=== PATIENT | male | born 1995 | race Caucasian/White ===

== ENCOUNTER → 2017-01-19 15:17 | Emergency (ER) | payer SELFPAY ==
[~2017-01-19 15:17] MED LIST: Ibuprofen TAB* 600 MG PO ONE
[2017-01-19 16:03] VITALS: BP 144/95
--- NOTE | 2017-01-19 17:43 | ED ---
HPI Chest Pain - HPI Summary HPI Summary: 21 male presents with complaints of chest pain on the left side that also radiates into his shoulder that he describes as squeezing. Patient states he had this pain a few days ago that went away however returned upon waking this morning. States the pain worsens during inspiration. States the pain is constant and and severity is in between a 5-7/10. Has never had pain like this before. Denies SOB and difficulty breathing. Denies diaphoresis, nausea, vomiting, recent illness, cold symptoms, headache and fever/chills. Admits to having some acid reflux ~ 1 week ago that improved after taking pepto bismol. Denies diarrhea, constipation and abdominal pain. Does not have any medical problems. Has not taken any medications. Denies recent trauma, injury, or strenuous physical activity. Has not worked out at the gym. No other complaints at this time. States the pain has been worsening throughout the day. No recent travel, denies anxiety. Has not eaten spicy or acidic foods. Denies numbness/ tingling. - History of Current Complaint Chief Complaint: EDChestWallPain Time Seen by Provider: 01/19/17 16:45 Hx Obtained From: Patient Onset/Duration: Started Hours Ago - this am upon waking Timing: Constant Initial Severity: Mild Current Severity: Moderate Pain Intensity: 6 Pain Scale Used: 0-10 Numeric Chest Pain Location: Mid Sternal, Upper Sternal, Left Lateral Chest Pain Radiates To:: Shoulder Character: Pressure/Squeezing, Sharp/Stabbing Aggravating Factor(s): Deep Breaths Alleviating Factor(s): Spontaneous Resolution - last episode, however has not resolved this current episode Associated Signs and Symptoms: Positive: Chest Pain. Negative: Recent Stress, Headaches, Numbness, Tingling, Weakness, Shortness of Breath, Swelling, Fever, Chills, Lightheadedness, Diaphoresis, Nausea, Cough, Back Pain, Vomiting, Nasal Congestion, URI - Risk Factors Pulmonary Embolism Risk Factors: Smoking TAD Risk Factors: Negative - Allergy/Home Medications Allergies/Adverse Reactions: Allergies Allergy/AdvReac Type Severity Reaction Status Date / Time No Known Allergies Allergy Verified 06/07/15 21:29 PMH/Surg Hx/FS Hx/Imm Hx Endocrine/Hematology History: Denies: Hx Diabetes Cardiovascular History: Denies: Hx Hypertension Respiratory History: Denies: Hx Asthma - Surgical History Surgery Procedure, Year, and Place: EAR TUBES - Immunization History Immunizations Up to Date: Yes Infectious Disease History: Denies: Traveled Outside the [place] in Last 30 Days - Family History Known Family History: Positive: None - Social History Alcohol Use: None Substance Use Type: Reports: None Smoking Status (MU): Current Every Day Smoker Type: Cigarettes Amount Used/How Often: 1/3 PPD Review of Systems Constitutional: Negative Eyes: Negative ENT: Negative Positive: Chest Pain Respiratory: Negative Gastrointestinal: Negative Skin: Negative Neurological: Negative All Other Systems Reviewed And Are Negative: Yes Physical Exam Triage Information Reviewed: Yes Vital Signs On Initial Exam: Initial Vitals Temp Pulse Resp BP Pulse Ox 98.0 F 82 20 144/95 97 01/19/17 16:01 01/19/17 16:01 01/19/17 16:01 01/19/17 16:01 01/19/17 16:01 Vital Signs Reviewed: Yes Appearance: Positive: Well-Appearing, No Pain Distress, Well-Nourished Skin: Positive: Warm, Skin Color Reflects Adequate Perfusion, Dry. Negative: Numb, Cyanosis @, Erythema @ Head/Face: Positive: Normal Head/Face Inspection Eyes: Positive: Normal, Conjunctiva Clear ENT: Positive: Normal ENT inspection, Hearing grossly normal, Pharynx normal, TMs normal Neck: Positive: Supple, Nontender, No Lymphadenopathy Respiratory/Lung Sounds: Positive: Clear to Auscultation, Breath Sounds Present. Negative: Rales, Rhonchi, Wheezes Cardiovascular: Positive: Normal - chest pain is nonreproducible on palpation, RRR, Pulses are Symmetrical in both Upper and Lower Extremities. Negative: Murmur, Rub Abdomen Description: Positive: Nontender, No Organomegaly, Soft Bowel Sounds: Positive: Present Musculoskeletal: Positive: Normal, Strength/ROM Intact Neurological: Positive: Normal, Sensory/Motor Intact, Alert, Oriented to Person Place, Time Psychiatric: Positive: Affect/Mood Appropriate AVPU Assessment: Alert Diagnostics - Vital Signs Vital Signs Temp Pulse Resp BP Pulse Ox 01/19/17 16:01 98.0 F 82 20 144/95 97 - Laboratory Result Diagrams: 01/19/17 17:55 01/19/17 17:55 Lab Statement: Any lab studies that have been ordered have been reviewed, and results considered in the medical decision making process. - Radiology chest x-ray\ Xray Interpretation: No Acute Changes Radiology Interpretation Completed By: Radiologist - No radiographic evidence of acute cardiopulmonary disease. - EKG EKG Cardiac Rate: NL ST Segment: Normal EKG Interpretation: abnormal EKG incomplete RBBB EKG Comparison: Other - none to compare to Chest Pain Course/Dx - Course Course Of Treatment: given ibuprofen for pain, had some relief however pain was still present. CBC CMP D-dimer, troponin EKG and chest x-ray obtained. EKG was abnormal with incomplete RBBB and changes. Read by Dr Villa and myself. Rest of labs, chest x-ray and PE findings were unremarkable at this time. Patient will be referred to follow up with cardiology within the next 3-5 days due to EKG findings and complaints. Educated on worsening signs and symptoms to watch out for. Follow up with PCP. Return if new symptoms or worsening symptoms develop. Ibuprofen for the next couple of days with food to see if it eliminates pain as it may be MSK related as well especially due to pain increasing with inspiration. No concern for abdominal etiology at this time due to PE findings, HPI and lab findings. - Chest Pain Differential Diagnosis/HQI/PQRI: Acute [place], ACS, Chest Wall, Other: - cardiomyopathy - Diagnoses Provider Diagnoses: Chest pain Discharge - Discharge Plan Condition: Stable Disposition: HOME Patient Education Materials: Chest Pain (ED), Chest Wall Pain (ED) Referrals: Ana CASEY,Merrill Jang [Primary Care Provider] - Jeannette Noonan MD [Medical Doctor] - Additional Instructions: Please make an appointment to follow up with cardiology within the next week. Also make an appointment with primary care provider. Continue taking ibuprofen for the next 3-5 days with food, (400mg every 4-6hours ) and rest. If symptoms worsen, persist or new symptoms develop such as shortness of breath , increasing chest pain, nausea, sweating, fever/chills please seek medical attention promptly.
[2017-01-19 18:01] LABS: Hematocrit 47 % (42-52); Hemoglobin 15.7 g/dl (14.0-18.0); Mean Corpuscular HGB Conc 34 g/dl (31-36); Mean Corpuscular Hemoglobin 32 pg (27-31); Mean Corpuscular Volume 94 fL (80-94); Mean Platelet Volume 9 um3 (7.4-10.4); Red Blood Count 4.98 10^6/ul (4.0-5.4); Red Cell Distribution Width 13 % (10.5-15); White Blood Count 12.7 10^3/ul (3.5-10.8)
[2017-01-19 18:16] LABS: Albumin 4.7 g/dL (3.2-5.2); BUN/Creatinine Ratio 11.2 (8-20); Calcium 9.6 mg/dL (8.6-10.3); EGFR African American 140.2 (>60); Globulin 2.5 g/dL (2-4); Potassium 3.7 mmol/L (3.5-5.0); Total Protein 7.2 g/dL (6.4-8.9)
--- NOTE | 2017-01-19 18:16 | RAD ---
INDICATION: Left-sided chest pain exacerbated with inspiration COMPARISON: None TECHNIQUE: PA and lateral views of the chest were obtained. FINDINGS: The heart and mediastinum are normal in size and contour. The lungs are grossly clear. There is no evidence of large pleural effusion. Visualized bones are normal for the patient's age. There is no radiographic evidence of free air beneath the diaphragm IMPRESSION: No radiographic evidence of acute cardiopulmonary disease.
== END | disposition home or self-care (01) ==
LOC: ED 15:17
DX: R07.89 Other chest pain (principal); F17.210 Nicotine dependence, cigarettes, uncomplicated
CPT/HCPCS: 36415; 71020; 80053; 83605; 84484; 85025; 85379; 93005; 99282; A9270-GY